=== PATIENT | female | born 1955 | race Caucasian/White ===

== ENCOUNTER 2017-01-21 09:32 | Emergency (ER) | payer BC ==
[~2017-01-21] VITALS: Ht 172.7 cm; Wt 73.0 kg
[2017-01-21 09:38] VITALS: BP 156/86; PULSE 69; RESP 16; TEMP 98.7; O2SAT 97
[2017-01-21] MEDS ORDERED: CELE10TA PO (09:45)
[2017-01-21] MEDS: KETOROLAC TROMETHAMINE 60 MG/2 ML (IM) VIAL IM ONE ×2 (10:30→10:39)
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
== END 2017-01-21 11:50 | disposition home or self-care (01) ==
LOC: PHED 09:32
DX: R07.81 Pleurodynia (principal); V19.3XXA Pedal cyclist (driver) (passenger) injured in unspecified nontraffic accident, initial encounter; Y93.55 Activity, bike riding
CPT/HCPCS: 71101; 99283; J1885